=== PATIENT | female | born 1970 | race Caucasian/White ===

== ENCOUNTER → 2024-03-18 12:34 | Outpatient (REF) | payer OTHER, SELFPAY | LOC: HWRAD 12:34 | PROVIDERS: ATTENDING PHYSICIAN Student in an Organized Health Care Education/Training Program | DX: J20.9 Acute bronchitis, unspecified (principal); R05.3 Chronic cough; J45.20 Mild intermittent asthma, uncomplicated; K21.9 Gastro-esophageal reflux disease without esophagitis | CPT/HCPCS: 71046 ==

== ENCOUNTER → 2024-04-27 12:13 | Outpatient (REF) | payer OTHER, SELFPAY | LOC: HWRAD 12:13 | PROVIDERS: ATTENDING PHYSICIAN Student in an Organized Health Care Education/Training Program; FAMILY PHYSICIAN Family Medicine | DX: J45.50 Severe persistent asthma, uncomplicated (principal); K21.9 Gastro-esophageal reflux disease without esophagitis; J45.20 Mild intermittent asthma, uncomplicated | CPT/HCPCS: 71046 ==

== ENCOUNTER → 2025-01-02 11:25 | Outpatient (REF) | payer OTHER, SELFPAY | LOC: HWRAD 11:25 | PROVIDERS: ATTENDING PHYSICIAN Internal Medicine | DX: R05.1 Acute cough (principal) | CPT/HCPCS: 71046 ==

== ENCOUNTER 2025-01-28 09:57 | Emergency (ER) | payer OTHER, SELFPAY ==
[2025-01-28 09:59] VITALS: BP 167/107
--- NOTE | 2025-01-28 10:46 | ED.GENMED ---
History of Present Illness
General
Chief Complaint: Cough
Time Seen by Provider: 01/28/25 10:12
History of Present Illness
History of Present Illness:
Patient presents to the emergency department with cough. She has a history of a neurogenic cough. She sees a land surveyor manager. She is currently on corticosteroids for this. She states this cough has been present since December 17. She has received
a course of Levaquin and steroids for this. Initially felt to be bronchitis. However, cough has persisted. She reports inability to perform her daily activities without stopping to cough and feel out of breath. Denies fevers or chills. Denies
chest pain.
Phy Exam
Physical Exam
Physical Exam:
GENERAL APPEARANCE: NAD, well developed/ well nourished
EYES lids/conjunctiva normal
EARS/NOSE/THROAT Mucous membranes moist, uvula midline without oral pharyngeal erythema, exudate or swelling
HEAD/NECK normocephalic atraumatic, neck is supple.
RESPIRATORY frequent coughing, lungs ctab, no wheezing
CARDIAC Regular rate and rhythm, no edema.
ABDOMINAL Soft, ND/NT
MUSCLES/EXTREMITIES No abnormal range of motion, no swelling.
SKIN Warm, pink and dry. No rashes
NEUROLOGICAL Speech is clear and appropriate. Normal level of consciousness. 5/5 strength in all extremities.
PSYCH Normal mood and affect. Judgement/competence is appropriate
Course
Orders/Labs/Results
Orders:
Orders
01/28/25 10:45
CR Chest - 2 Views Urgent
Comment:
Reason For Exam: sob
01/28/25 10:46
Ipratropium/Albuterol Sulfate [Duoneb] 3 ml INH R NOW STA
01/28/25 11:10
Basic Metabolic Panel Urgent
COVID-19 Antigen Urgent
Source: Nasal Swab
Complete Blood Count/With Diff Urgent
NT-proBNP Urgent
Troponin I Urgent
Influenza A+B Rapid Molecular Urgent
AMADA Source: Nasal Swab
Specimen Description:
Abnormal Lab Results
01/28/25
11:10
WBC 11.6 H 10^3/uL
(4.8-10.8)
RBC 4.16 L 10^6/uL
(4.20-5.40)
MPV 10.5 H fL
(7.4-10.4)
Abs Immat Gran (auto) 0.1 H 10^3/uL
(0-0.05)
Absolute Neuts (auto) 9.1 H 10^3/uL
(1.4-6.5)
Absolute Lymphs (auto) 0.8 L 10^3/uL
(1.2-3.4)
Absolute Monos (auto) 1.5 H 10^3/uL
(0.1-0.6)
Immature Gran % 1.0 H %
(0-0.5)
Neutrophils % 78.5 H %
(42.2-75.2)
Lymphocytes % 7.3 L %
(20.5-51.1)
Monocytes % 12.9 H %
(1.7-9.3)
Chloride 110 H mmol/L
(98-107)
BUN 23 H mg/dl
(7-17)
Calcium 8.3 L mg/dl
(8.4-10.2)
01/28/25 11:10
01/28/25 11:10
Vital Signs
Initial and Last Documented VS:
Initial Vital Signs
Temp Pulse Resp BP Pulse Ox
99 F 106 16 167/107 98
01/28/25 09:59 01/28/25 09:59 01/28/25 09:59 01/28/25 09:59 01/28/25 09:59
Last Documented Vital Signs
Temp Pulse Resp BP Pulse Ox
99 F 98 18 105/96 97
01/28/25 09:59 01/28/25 12:00 01/28/25 12:00 01/28/25 12:00 01/28/25 12:00
*Pulse Oximetry
SaO2: 98
Oxygen Mode of Delivery: Room air
Patient hypoxic: no
*Critical Care Note
Total Time (30-74mins, 75-104mins- exclusive of procedures): Not Applicable
ED Attending Note
ED Attending Note
ED Attending Note:
Patient with largely negative workup. She is saturating well on room air and is in no distress. She does have a frequent cough. Suspect this is some type of neurogenic cough. She has had success with codeine syrup in the past so I will give her
a brief course of this just to help her sleep at night. She has follow-up with her land surveyor manager this week. Return precautions given for worsening symptoms. Do not feel she would benefit from another course of antibiotics as she recently had
Levaquin, she is afebrile, has no purulent nasal drainage or expectorated mucus. Given prolonged course, doubt acute bacterial infection.
-
Portions of this chart may have been created with voice recognition software.� Occasional wrong word or��sound alike� substitutions may have occurred due to the inherent limitations of voice recognition software.
Discharge Plan
Departure
Patient Disposition: Home (Routine Discharge)
Date of Disposition: 01/28/25
Time of Disposition: 13:23
Patient with high blood pressure during this ER visit?: Yes
Discharge Problem:
Cough, Sinusitis
Instructions: Cough, Adult (DC), Chronic sinusitis
Prescriptions:
New
codeine-guaifenesin 10-100 mg/5 mL liquid
5 ml PO Q4H PRN (Reason: Cough) 5 Days Qty: 118 0RF
No Action
esomeprazole magnesium [Nexium] 40 mg Capsule,Delayed Release(Dr/Ec)
40 mg PO DAILY
fluticasone propion-salmeterol [Advair Diskus] 500-50 mcg/dose Blister With Device
INHALATION PRN PRN (Reason: SOB)
Rx Instructions:
last taken in march 2022
montelukast [Singulair] 10 mg Tablet
10 mg PO DAILY
hydroxychloroquine [Plaquenil] 200 mg Tablet
400 mg PO DAILY
rosuvastatin 10 mg Tablet
10 mg PO DAILY
ProAir RespiClick 90 mcg/actuation Aerosol Powdr Breath Activated
90 mcg INHALATION PRN PRN (Reason: SOB)
Patient Comments:
last tken in December
Saphnelo 300 mg/2 mL (150 mg/mL) Solution
300 mg IV Q4W
Chlorphed
12 mg PO DAILY
cyanocobalamin (vitamin B-12)
1,000 mcg IM MONTHLY
Referrals:
Armaan Yates DO [Family Provider, Family Practice]
Activity Restrictions/Additional Instructions:
Please use over the counter Flonase. We have prescribed cough syrup for the next few days to help you sleep. Please schedule close outpatient follow up with your pulmonlogist. Continue dexamethasone.
Interventions
Interventions:
*Risk Screen - Suicide Last Done: 01/28/25 10:02
*General Assessment Last Done: 01/28/25 10:59
*Neglect/Abuse Screening Last Done: 01/28/25 10:02
*ED COVID-19 Vaccine History Last Done: 01/28/25 10:59
*ED Influenza Vaccine History Last Done: 01/28/25 10:59
[facility] Fall Risk Assessment Tool Last Done: 01/28/25 09:58
*Nursing Disposition Last Done: 01/28/25 14:04
ED- Pulmonary Assessment Last Done: 01/28/25 10:11
Discharge Date and Time
Discharge Date/Time: 01/28/25 14:04
Print Language: KHMER
[2025-01-28 10:59] VITALS: BMI 33.0
[2025-01-28] MEDS: DUONEB 3 ML INH (11:06)
[2025-01-28 11:31] LABS: Hematocrit 37.1 % (37.0-47.0); Hemoglobin 12.4 g/dL (12.0-16.0); Mean Corp Hgb Conc. 33.4 g/dL (33.0-37.0); Mean Corpuscular Volume 89.2 fL (81.0-99.0); Nucleated Red Blood Cells % 0 %; Platelet Count 231 10^3/uL (130-400); Red Cell Dist. Width 14.2 % (11.5-14.5)
[2025-01-28 11:44] LABS: Blood Urea Nitrogen 23 mg/dl (7-17); Calcium 8.3 mg/dl (8.4-10.2); Carbon Dioxide 23 mmol/L (22-30); Chloride 110 mmol/L (98-107); Estimated Creatinine Clearance 83 ml/min; Glucose 87 mg/dl (70-99); Potassium 4.3 mmol/L (3.5-5.1); Sodium 135 mmol/L (135-145); eGFR > 60.00
[2025-01-28 11:54] LABS: Troponin I 0.018 ng/ml
[2025-01-28 12:00] VITALS: BP 105/96
[2025-01-28 12:47] LABS: COVID-19 Antigen Negative (Negative)
== END 2025-01-28 14:04 | disposition home or self-care (01) ==
LOC: EMR 09:57
PROVIDERS: EMERGENCY PHYSICIAN Emergency Medicine; FAMILY PHYSICIAN Family Medicine
DX: J32.9 Chronic sinusitis, unspecified (principal); R05.9 Cough, unspecified; Z11.52 Encounter for screening for COVID-19
CPT/HCPCS: 94640; 99284; 71046; 80048; 83880; 84484; 85025; 87502; 87811

== ENCOUNTER 2025-02-22 13:20 | Emergency (ER) | payer OTHER, SELFPAY ==
[2025-02-22 13:34] VITALS: BP 136/89
[2025-02-22 13:58] LABS: Hematocrit 40.2 % (37.0-47.0); Hemoglobin 13.5 g/dL (12.0-16.0); Mean Corp Hgb Conc. 33.6 g/dL (33.0-37.0); Mean Corpuscular Volume 90.1 fL (81.0-99.0); Nucleated Red Blood Cells % 0 %; Platelet Count 168 10^3/uL (130-400); Red Cell Dist. Width 13.3 % (11.5-14.5)
[2025-02-22 14:12] LABS: ALT (SGPT) 26 U/L (0-35); AST (SGOT) 22 U/L (14-36); Albumin 3.6 g/dl (3.5-5.0); Alkaline Phosphatase 62 U/L (38-126); Blood Urea Nitrogen 24 mg/dl (7-17); Calcium 8.4 mg/dl (8.4-10.2); Carbon Dioxide 27 mmol/L (22-30); Chloride 105 mmol/L (98-107); Glucose 97 mg/dl (70-99); INR 0.86; PT 11.6 Sec (11.4-14.6); Potassium 3.5 mmol/L (3.5-5.1); Sodium 136 mmol/L (135-145); Total Protein 6.3 g/dl (6.3-8.2); eGFR > 60.00
[2025-02-22 14:22] LABS: Troponin I 0.012 ng/ml
[2025-02-22 14:32] LABS: APTT 23.4 Sec (23.4-35.0)
--- NOTE | 2025-02-22 15:06 | ED.GENMED ---
History of Present Illness
General
Chief Complaint: Facial Problem
Source: patient
Exam Limitations: none
Time Seen by Provider: 02/22/25 15:06
History of Present Illness
History of Present Illness:
54-year-old female who was told by her that her left face was intermittently droopy since yesterday. Patient has not noted this and has no physical acute complaints. She denies facial droop difficulty speaking difficulty swallowing or
breathing double vision loss of vision numbness tingling weakness or any other acute complaints. She has had some pain in her left foot for days. No trauma.
Past History
Past History
ED Past Medical History: HTN, Hypercholesterolemia and Other (Lupus)
ED Past Surgical History: Gynecological, Orthopedic and Other (Hernia surgery. Septoplasty.)
Phy Exam
Physical Exam
Physical Exam:
GENERAL: Alert and oriented in no apparent distress
EYE: Orbits normal. Extraocular muscles intact
NECK: Supple, no carotid bruits
ENT: Pharynx without erythema
CARDIAC: Regular rate and rhythm without any obvious murmurs.
LUNGS: Clear breath sounds,normal
ABDOMEN: Soft, without focal tenderness or distention
NEUROLOGICAL: Alert and oriented , cranial nerves II through XII intact. Speech normal. No facial droop appreciated. No tongue deviation. No loss of eyebrow ridges or forehead palsy. [id number] normal. No drift. Gait normal except for a
limp.
SKIN: Warm and dry, no rash or lesion, no discoloration, skin intact.
MUSCULOSKELETAL: Mild tenderness to the left medial ankle and posterior calf. No cord or swelling
PSYCH: Normal and appropriate interaction.
Course
Orders/Labs/Results
Orders:
Orders
02/22/25 13:40
Electrocardiogram (*1) Urgent
Reason for Study: Other
Other Reason for Exam: Possible Stroke
CT Head W/o Iv Contrast Urgent
Comment:
Reason For Exam: tia symptoms
EKG- Treatment ONCE
O2 Therapy [RESP] Urgent
Titrate/Wean O2 to maintain O2 sat greater than (%): 93
Special Instructions: MAINTAIN CONTINUOUS O2 SATS > OR = 93%
02/22/25 13:49
Complete Blood Count/With Diff Urgent
Comprehensive Metabolic Panel Urgent
PTT Urgent
Prothrombin Time Urgent
Troponin I Urgent
02/22/25 15:16
US Cerebrovascular Urgent
Comment:
Reason For Exam: Intermittent left facial droop
US Periph Venous LOWER Ext LT Urgent
Comment:
Reason For Exam: left calf pain
02/22/25 17:19
Aspirin Chewable [Low Strength Aspirin] 81 mg PO NOW STA
Abnormal Lab Results
02/22/25
13:49
Abs Immat Gran (auto) 0.1 H 10^3/uL
(0-0.05)
Absolute Lymphs (auto) 1.1 L 10^3/uL
(1.2-3.4)
Absolute Monos (auto) 0.7 H 10^3/uL
(0.1-0.6)
Immature Gran % 1.2 H %
(0-0.5)
Neutrophils % 76.2 H %
(42.2-75.2)
Lymphocytes % 13.7 L %
(20.5-51.1)
BUN 24 H mg/dl
(7-17)
02/22/25 13:49
02/22/25 13:49
Vital Signs
Initial and Last Documented VS:
Initial Vital Signs
Temp Pulse Resp BP Pulse Ox
98.2 F 124 16 136/89 98
02/22/25 13:34 02/22/25 13:34 02/22/25 13:34 02/22/25 13:34 02/22/25 13:34
Last Documented Vital Signs
Temp Pulse Resp BP Pulse Ox
98.2 F 103 16 133/79 95
02/22/25 13:34 02/22/25 16:54 02/22/25 16:54 02/22/25 16:54 02/22/25 16:54
MDM/Problems Addressed
Differential Diagnosis Includes:
At this time I find nothing clinically to support an acute neurologic issue. Also nothing to support a 7th cranial nerve palsy. Exam is unremarkable. She has some mild tenderness of her left foot but no bony tenderness. No warmth or erythema.
Mild calf tenderness. Ultrasound will be done for completeness. Serial x-rays would be unremarkable. Her ER workup is unremarkable except for a sinus tachycardia. Theoretically this could have been a TIA's although nothing to support an acute
CVA at this time. Will get carotid ultrasounds. Even MRI, could be negative in the current setting. If ultrasound is negative will recommend starting a baby aspirin and follow-up with return immediately with any change in symptom
*Radiology
Radiology exam reviewed: radiology read reviewed (No acute findings) and other (Negative carotid ultrasound. Negative leg ultrasound)
*Pulse Oximetry
SaO2: 98
Oxygen Mode of Delivery: Room air
Patient hypoxic: no
*EKG
Interpreted by ED Provider?: Yes
Interpretation: abnormal
Comparison EKG: no comparison EKG present
Heart Rate: 108
Rate: tachycardiac
Rhythm: sinus
Kegley: normal axis
Interval: normal interval
QRS Pattern: normal QRS
Ischemia: non-specific ST changes
*Critical Care Note
Total Time (30-74mins, 75-104mins- exclusive of procedures): Not Applicable
Data Reviewed
Review of Other/Old Records Reveals: Labs, Records, Radiology Studies and Testing
Update Note
Update Note:
Patient is remained medically stable and nontoxic. No serious etiologies found. Medically stable. No recurring intermittent facial droop. Doubt TIAs although technically cannot 100% rule out as an etiology. Highly doubt 7th cranial nerve palsy.
Will start a baby aspirin and follow-up
ED Attending Note
-
Portions of this chart may have been created with voice recognition software.� Occasional wrong word or��sound alike� substitutions may have occurred due to the inherent limitations of voice recognition software.
Discharge Plan
Departure
Patient Disposition: Home (Routine Discharge)
Date of Disposition: 02/22/25
Time of Disposition: 17:20
Patient with high blood pressure during this ER visit?: Yes
Discharge Problem:
Intermittent left facial droop, Left foot pain
Instructions: BLOOD PRESSURE
Prescriptions:
No Action
esomeprazole magnesium [Nexium] 40 mg Capsule,Delayed Release(Dr/Ec)
40 mg PO DAILY
fluticasone propion-salmeterol [Advair Diskus] 500-50 mcg/dose Blister With Device
INHALATION PRN PRN (Reason: SOB)
Rx Instructions:
last taken in march 2022
montelukast [Singulair] 10 mg Tablet
10 mg PO DAILY
hydroxychloroquine [Plaquenil] 200 mg Tablet
400 mg PO DAILY
rosuvastatin 10 mg Tablet
10 mg PO DAILY
ProAir RespiClick 90 mcg/actuation Aerosol Powdr Breath Activated
90 mcg INHALATION PRN PRN (Reason: SOB)
Patient Comments:
last tken in December
Saphnelo 300 mg/2 mL (150 mg/mL) Solution
300 mg IV Q4W
Chlorphed
12 mg PO DAILY
cyanocobalamin (vitamin B-12)
1,000 mcg IM MONTHLY
codeine-guaifenesin 10-100 mg/5 mL liquid
5 ml PO Q4H PRN (Reason: Cough) 5 Days Qty: 118 0RF
Referrals:
Armaan Yates DO [Family Provider, Family Practice] - Follow up in 2-3 days
Activity Restrictions/Additional Instructions:
Take an aspirin per day baby aspirin is okay
Follow-up closely with your primary physician
Return with recurrent or persistent facial droop or any other acute neurologic symptoms. Also return with unusual headache.
As for the foot pain, get rechecked if not improving in 2 to 3 days or increased pain increased swelling or any other concerning symptoms
Interventions
Interventions:
*General Assessment Last Done: 02/22/25 13:34
*Neglect/Abuse Screening Last Done: 02/22/25 13:34
*Risk Screen - Suicide (C-SSRS) Last Done: 02/22/25 13:34
*Nursing Disposition Last Done: 02/22/25 17:40
ED- Neurological Assessment Last Done: 02/22/25 17:40
ED-Skin Assessment Last Done: 02/22/25 17:40
Discharge Date and Time
Discharge Date/Time: 02/22/25 17:40
Print Language: FILIPINO
[2025-02-22 16:54] VITALS: BP 133/79
[2025-02-22] MEDS: LOW STRENGTH ASPIRIN 81 MG PO (17:29)
== END 2025-02-22 17:40 | disposition home or self-care (01) ==
LOC: EMR 13:20
PROVIDERS: Student in an Organized Health Care Education/Training Program; EMERGENCY PHYSICIAN Emergency Medicine; FAMILY PHYSICIAN Family Medicine
DX: R29.810 Facial weakness (principal); M79.672 Pain in left foot; I10 Essential (primary) hypertension; E78.00 Pure hypercholesterolemia, unspecified
CPT/HCPCS: 99284; 70450; 80053; 84484; 85025; 85610; 85730; 93005; 93880; 93971